=== PATIENT | male | born 1995 | race Hispanic/Latino ===

== ENCOUNTER 2020-06-29 10:46 | Emergency (ER) | payer SELFPAY ==
--- NOTE | 2020-06-29 10:50 | ED.MALEGU ---
HPI - Male Genitourinary General Chief complaint: Urogenital-Male Stated complaint: STD Test Time Seen by Provider: 06/29/20 11:12 Source: patient and RN notes reviewed Mode of arrival: ambulatory Limitations: no limitations History of Present Illness HPI Narrative: 25-year-old male presents concern for a lesion on the shaft of his penis. Reports he noticed the area yesterday, reports it was painful and when he squeezed it had a small amount of drainage. Reports the area has gotten slightly smaller today, however still painful to touch. He denies any history of such lesions in the past. Reports he has had unprotected 2 sexual partners, however is not aware of any confirmed exposure to STDs. He denies dysuria, urine frequency, urgency, penile discharge. He denies general malaise, fever, body aches. He denies intervention. MD Complaint: possible STD exposure Related Data Allergies Allergy/AdvReac Type Severity Reaction Status Date / Time shellfish derived Allergy Itching Verified 06/29/20 11:03 Review of Systems Review of Systems: Narrative: CONSTITUTIONAL: Denies malaise, chills, sweats, or fever. CARDIOVASCULAR: Denies chest pain, palpitations, or edema. RESPIRATORY: Denies cough or dyspnea. GASTROINTESTINAL: Denies abdominal pain, nausea, vomiting, diarrhea GENITOURINARY: Denies dysuria, penile discharge, urgency, frequency, or hematuria. SKIN: Reports a lesion on the shaft of his penis MUSCULOSKELETAL: Denies myalgia. NEUROLOGIC: Denies numbness, weakness, or headache. All systems reviewed & are unremarkable except as noted in HPI and below PMFSH Social History Social History Gender identity (if verbalized by the patient): Female Comments At time of signature, agree with nursing past medical, surgical, social and family history. There is no relevant family history pertinent to the presenting complaint Exam Narrative: Exam Narrative: GENERAL: Well-appearing, well-nourished, and in no acute distress. HEAD: Normocephalic. EYES: PERRLA, conjunctivae clear. NECK: Supple. No lymphadenopathy CHEST: Clear to auscultation. No respiratory distress. HEART: Regular rate and rhythm. SKIN: Warm, dry, no rash. NEURO: Alert and oriented x3. PSYCH: Normal mood and affect : Penis: Yes Genital lesions present Meatus: meatus normal Scrotum: scrotum normal Testes: Testes normal Male genitals images: 1. Erythematous ulcer less than 0.5 cm Course Course Emergency Course: Patient is aware of diagnosis, understands and agrees to treatment plan. Anticipatory guidance given. Patient agrees to follow-up as directed and is aware of reasons to seek care at the emergency department. Portions of this record may have been created with voice recognition software Vital Signs Vital signs: Reviewed. MDM - Male Genitourinary MDM Narrative Medical decision making narrative: Exam findings show no acute concerns or changes; patient is non-toxic appearing and is in no distress. Patient is appropriate for outpatient treatment and follow-up. Differential Diagnosis Differential diagnosis: Likely urinary tract infection, urethritis and genital herpes simplex Critical Care Time Critical Care Time Critical Care Time: No Discharge Plan Discharge Clinical Impression: Possible exposure to STD Patient Disposition: Home, Self-Care Condition: Stable Instructions: Antibiotic Form, Genital Herpes Simplex (ED), Safe Sex Practices (ED) Additional Instructions: You have been tested for potential gonorrhea, chlamydia, and trichomoniasis today. You have received antibiotics for gonorrhea and chlamydia today, a prescription has been called into your pharmacy to treat trichomoniasis. You have also been tested for genital herpes. A prescription is called into your pharmacy for treatment of a genital herpes outbreak. You can choose to brick picker the prescription now and take it as directed, or you can choose to wait until you receive you
[2020-06-29 10:57] VITALS: BP 130/76; PULSE 77; RESP 16; TEMP 36.4; O2SAT 100
[2020-06-29] MEDS: cefTRIAXone 250 MG VIAL IM (11:37)
[2020-06-29] MEDS: LIDOCAINE HCL 1% LOCAL INJ 20 ML VIAL INFILTRATE (11:37)
[2020-06-29] MEDS: AZITHROMYCIN 250 MG TABLET 1000 MG PO (11:39)
== END 2020-06-29 11:56 | disposition home or self-care (01) ==
PROVIDERS: Emergency Provider Nurse Practitioner
DX: N50.9 Disorder of male genital organs, unspecified (principal)
CPT/HCPCS: 87255; 87491; 87591; 87661; 96372; 99203; A9270; G0463; J0696